=== PATIENT | male | born 1950 | race Caucasian/White ===

== ENCOUNTER → 2018-03-19 | Outpatient (CLI) | payer MEDICARE | LOC: COL.VAS 09:45 | DX: N18.4 Chronic kidney disease, stage 4 (severe) (principal) | CPT/HCPCS: G0365 ==

== ENCOUNTER 2018-07-23 13:54 | Inpatient (IN) | payer MEDICARE ==
[~2018-07-23] VITALS: Ht 182.9 cm; Wt 123.2 kg
[2018-07-23 14:18] VITALS: BP 149/69; PULSE 86; TEMP 97.6
--- NOTE | 2018-07-23 15:00 | NUR ---
Patient assessed at this time. Brother is at bedside. IV started, lab requesting assistance drawing blood. Radiology here to do renal ultrasound.
[2018-07-23 15:23] LABS: BASO % 0.6 % (0.0-2.0); EOS # 0.3 (0.0-0.7); EOS % 3.9 % (0-4.0); GRAN # 5.2 (1.4-6.5); GRAN % 78.6 % (42.2-75.2); LYMPH # 0.6 (1.2-3.4); LYMPH % 8.6 % (20.0-51.0); MEAN CELL VOLUME 88 fl (80.0-100.0); MEAN CORPUSCULAR HEMOGLOBIN 29 pg (27.0-31.0); MEAN CORPUSCULAR HGB CONC 33 g/dl (33.0-37.0); MEAN PLATELET VOLUME 11.3 fl (7.4-10.4); MONO # 0.5 (0.1-0.6); PLATELET COUNT 216 K/mm3 (130-400); RED BLOOD COUNT 4.16 M/mm3 (4.20-5.60); REDCELL DISTRIBUTION WIDTH-CV 13.2 % (11.5-14.5)
[2018-07-23 15:24] LABS: HEMATOCRIT 36.7 % (42.0-52.0)
[2018-07-23 15:29] LABS: PROTHROMBIN TIME 11.2 SECONDS (9.7-12.8)
[2018-07-23 15:31] LABS: ALANINE AMINOTRANSFERASE 26 U/L (21-72); ALBUMIN 4.3 gm/dL (3.5-5.0); ALKALINE PHOSPHATASE 80 U/L (50-136); ANION GAP 20 mmol/L (7-16); AST,SGOT 16 U/L (15-37); BILIRUBIN,TOTAL 0.4 mg/dL (0.0-1.0); CALCIUM 9.5 mg/dL (8.4-10.2); CARBON DIOXIDE 16 mmol/L (22-30); CHLORIDE 101 mmol/L (98-107); GLUCOSE 103 mg/dL (74-106); SODIUM 136 mmol/L (137-145); TOTAL PROTEIN 7.6 gm/dL (6.4-8.2)
[2018-07-23 15:32] LABS: BLOOD UREA NITROGEN > 120 mg/dL (9-20)
[2018-07-23 15:34] LABS: POTASSIUM 6.8 mmol/L (3.4-5.0)
[2018-07-23 15:46] LABS: CREATININE, serum 17.97 mg/dL (0.66-1.25)
[2018-07-23 15:47] LABS: IRON,SERUM 111 ug/dL (35-150); TOTAL IRON BINDING CAPACITY 253 ug/dL (261-462)
[2018-07-23 16:33] VITALS: BP 157/63; PULSE 82; TEMP 97.7
[2018-07-23] MEDS ORDERED: NORVASC2.5 MG PO (17:54)
[2018-07-23] MEDS ORDERED: HYTRIN 2MG CAPSU2 MG PO (17:54)
[2018-07-23] MEDS ORDERED: ASPIRIN 81M81 MG/TA2 PO (17:55)
--- NOTE | 2018-07-23 18:33 | NUR ---
Patient is resting in bed on right side. Finished evening meal. Consent signed for procedure in the morning. Has not had a bowel movement yet. Denies pain. Understands he is to have nothing to eat after midnight and was made aware of medication changes by Dr. Smith. Call light is within reach.
[2018-07-23 19:03] VITALS: BP 150/75; PULSE 88; TEMP 97.7
--- NOTE | 2018-07-23 20:30 | NUR ---
Initial shift assessment done- denies pain, states feels fine tonight-- understands will be NPO after MN tonight for Dialysis cath placement in AM- given a sandwich box tonight for a snack- no requests
[2018-07-24 00:09] VITALS: BP 145/53; PULSE 78; TEMP 97.8
[2018-07-24 00:11] LABS: HEPATITIS B CORE AB,TOTAL Negative (()); HEPATITIS B SURFACE ANTIGEN Negative (Negative)
[2018-07-24 00:12] LABS: HEPATITIS B SURFACE ANTIBODY <2.0 (())
[2018-07-24 00:13] LABS: HEPATITIS C VIRUS ANTIBODY Negative (Negative)
[2018-07-24 04:32] VITALS: BP 134/64; PULSE 80
[2018-07-24 05:58] LABS: BASO % 0.5 % (0.0-2.0); EOS # 0.4 (0.0-0.7); EOS % 5.8 % (0-4.0); GRAN # 4.9 (1.4-6.5); GRAN % 74.5 % (42.2-75.2); HEMOGLOBIN 11.5 g/dl (13.5-18.0); LYMPH # 0.6 (1.2-3.4); LYMPH % 8.9 % (20.0-51.0); MEAN CELL VOLUME 88 fl (80.0-100.0); MEAN CORPUSCULAR HEMOGLOBIN 29 pg (27.0-31.0); MEAN CORPUSCULAR HGB CONC 33 g/dl (33.0-37.0); MEAN PLATELET VOLUME 10.8 fl (7.4-10.4); MONO # 0.6 (0.1-0.6); MONO % 9.8 % (1.7-9.3); PLATELET COUNT 196 K/mm3 (130-400); RED BLOOD COUNT 3.95 M/mm3 (4.20-5.60); REDCELL DISTRIBUTION WIDTH-CV 13.2 % (11.5-14.5)
--- NOTE | 2018-07-24 06:00 | NUR ---
quiet night-- has been NPO since MN ,, states did not sleep much-states a little nervous about the procedure this morning- VSS
[2018-07-24 06:04] LABS: HEMATOCRIT 34.6 % (42.0-52.0)
[2018-07-24 06:13] LABS: ALBUMIN 3.9 gm/dL (3.5-5.0); CALCIUM 8.7 mg/dL (8.4-10.2); POTASSIUM 5.1 mmol/L (3.4-5.0)
[2018-07-24 06:35] LABS: CREATININE, serum 18.22 mg/dL (0.66-1.25); PHOSPHOROUS 12.9 mg/dL (2.5-4.5)
--- NOTE | 2018-07-24 07:10 | NUR ---
Received report, went to visit with patient. Patient is resting with eyes closed on left side. Call light is within reach.
--- NOTE | 2018-07-24 08:08 | NUR ---
Sleeping soundly at this time. No sign of pain. The call light is in place and the patient is currently NPO for dialysis cath placement today.
[2018-07-24 08:16] VITALS: BP 136/59; PULSE 80; TEMP 97.7
--- NOTE | 2018-07-24 09:10 | NUR ---
Patient noted to have half glass of ice water at bedside. Patient stated Dr. Smith is allowing a small amount of water prior to procedure.
--- NOTE | 2018-07-24 10:03 | NUR ---
Initial visit; Patient thanked Operating Room Surgical Technologist for looking in on him and offering God 's blessings.
--- NOTE | 2018-07-24 12:27 | NUR ---
Phoslo not administered, patient is at dialysis at this time. Went for cath placement at 1130. Received report from anesthesia.
--- NOTE | 2018-07-24 16:02 | NUR ---
Patient returned from dialysis at 1530. Denies pain, call light is within reach.
[2018-07-24 16:16] VITALS: BP 129/76; PULSE 83; TEMP 97.8
--- NOTE | 2018-07-24 16:25 | NUR ---
JOSEP and SW student met with the patient and patient's brother, Andrew, to discuss discharge plan. The patient lives alone in [place]. He reports independence with ADLs and has a cane. The patient's PCP is Dr. Nette Martinez and he receives his medications at the [facility] in [place]. He reports no difficulties obtaining his meds. The patient does not have advanced directives, but he was interested in obtaining the form for DPOA-HC. JOSEP provided. The patient plans to return home upon discharge. No additional needs at this time.
--- NOTE | 2018-07-24 18:05 | NUR ---
Patient is up to recliner visiting with family. Did order evening meal. Nursing staff educated patient on dietary information and informed patient that dietitian would be in to see him tomorrow. Denies pain. Call light is within reach.
[2018-07-24 19:02] VITALS: BP 158/78; PULSE 91; TEMP 97.9
--- NOTE | 2018-07-24 22:20 | NUR ---
Completed assessment; tolerated all well. PT reported he was unable to rest well last evening and was ready to to attempt to rest tonight; PT denied pain or discomfort at time of assessment; A&Ox3, BS active x4, urinary output reported althoughout not visualized; PT pending dialysis tomorrow AM per schedule; PT denied further needs or concerns at time of exit; Call light placed within reach; Will continue to monitor. CDA
[2018-07-25 00:52] VITALS: BP 150/70; PULSE 74; TEMP 99
--- NOTE | 2018-07-25 01:52 | NUR ---
PT offered midnight snack; PT denied pain, discomfort, or further needs at time of exit; PT resting well at check; call light well placed within reach; Will continue to monitor; no further medications or treatments at this time. CDA
[2018-07-25 05:30] VITALS: BP 148/56; PULSE 77; TEMP 97.9
--- NOTE | 2018-07-25 06:57 | NUR ---
Report given to PEÑA Strickland. No further changes. CDA
[2018-07-25 08:04] VITALS: BP 146/51; PULSE 85; TEMP 98
[2018-07-25 08:09] LABS: ALBUMIN 4.1 gm/dL (3.5-5.0); CALCIUM 10.3 mg/dL (8.4-10.2); POTASSIUM 5.4 mmol/L (3.4-5.0)
[2018-07-25 08:19] LABS: PHOSPHOROUS 11.2 mg/dL (2.5-4.5)
[2018-07-25 08:20] LABS: CREATININE, serum 14.52 mg/dL (0.66-1.25)
--- NOTE | 2018-07-25 08:35 | NUR ---
PATIENT ASSESSMENT COMPLETED. HE DENIES PAIN DOES HAVE A LITTLE DISCOMFORT AT DIALYSIS CATH SITE WHEN LAYING DOWN. HE HAS EATTEN BREAKFAST AND HOPES TO GO HOME AFTER DIALYSIS TODAY.
[2018-07-25 11:11] VITALS: BP 168/76; PULSE 77; TEMP 98.2
[2018-07-25 11:33] LABS: BASO # 0.1 (0.0-0.2); BASO % 0.8 % (0.0-2.0); EOS # 0.4 (0.0-0.7); EOS % 5.7 % (0-4.0); GRAN # 4.3 (1.4-6.5); GRAN % 66.9 % (42.2-75.2); HEMOGLOBIN 11.8 g/dl (13.5-18.0); LYMPH # 0.8 (1.2-3.4); LYMPH % 13.2 % (20.0-51.0); MEAN CELL VOLUME 88 fl (80.0-100.0); MEAN CORPUSCULAR HEMOGLOBIN 29 pg (27.0-31.0); MEAN CORPUSCULAR HGB CONC 33 g/dl (33.0-37.0); MONO # 0.8 (0.1-0.6); MONO % 13.2 % (1.7-9.3); PLATELET COUNT 219 K/mm3 (130-400); RED BLOOD COUNT 4.07 M/mm3 (4.20-5.60); REDCELL DISTRIBUTION WIDTH-CV 13.1 % (11.5-14.5)
[2018-07-25 11:40] LABS: HEMATOCRIT 35.7 % (42.0-52.0)
[2018-07-25] MEDS ORDERED: RENVELA800 MG PO (12:38)
[2018-07-25] MEDS ORDERED: NEPHROCAP PO (12:38)
--- NOTE | 2018-07-25 14:15 | NUR ---
PATIENT DISCHARGE INSTRUCTIONS REVIEWED, HE DENIES FURTHER QUESTIONS AND WILL GET NEW MEDICATIONS FROM [facility] IN [place]. INT TO LEFT WRIST REMOVED WITH CATH INTACT. DIALYSIS CATH TO RIGHT UPPER CHEST IS COVERED AND INTACT. HE IS AWARE OF KEEPING THIS COVERED AT ALL TIMES AND DO NOT SHOWER AND GET WET.
--- NOTE | 2018-07-25 15:15 | NUR ---
PATIENT DISCHARGED TO HOME WITH BELONGINGS. HIS BROTHER CAME TO PICK HIM UP. HE DENIES ANY FURTHER QUESTIONS.
== END 2018-07-25 15:20 | disposition home or self-care (01) | DRG 674 ==
LOC: MEDICAL 13:54
PROVIDERS: ADMIT Internal Medicine Nephrology
PROC: 0JH60XZ Insertion of Tunneled Vascular Access Device into Chest Subcutaneous Tissue and Fascia, Open Approach (ICD-10-PCS; principal; 2018-07-24)
PROC: 02HV33Z Insertion of Infusion Device into Superior Vena Cava, Percutaneous Approach (ICD-10-PCS; 2018-07-24)
PROC: 5A1D70Z Performance of Urinary Filtration, Intermittent, Less than 6 Hours Per Day (ICD-10-PCS; 2018-07-24)
PROC: 5A1D70Z Performance of Urinary Filtration, Intermittent, Less than 6 Hours Per Day (ICD-10-PCS; 2018-07-25)
DX: N17.9 Acute kidney failure, unspecified (principal); I12.0 Hypertensive chronic kidney disease with stage 5 chronic kidney disease or end stage renal disease; N18.9 Chronic kidney disease, unspecified; N18.6 End stage renal disease; Z86.718 Personal history of other venous thrombosis and embolism; E87.5 Hyperkalemia; E83.52 Hypercalcemia; T50.3X5A Adverse effect of electrolytic, caloric and water-balance agents, initial encounter
CPT/HCPCS: C1769; J0690; J1644; J2250; J3010

== ENCOUNTER 2018-11-20 08:31 | Outpatient (CLI) | payer MEDICARE ==
[~2018-11-20] VITALS: Ht 182.9 cm; Wt 123.1 kg
[2018-11-20] VITALS (9 sets, daily range): BP systolic 124–154; BP diastolic 77–93; PULSE 70–77; TEMP 97.7
[~2018-11-20 08:31] MED LIST: ASPIRIN 81M81 MG/TA2 PO; HYTRIN 2MG CAPSU2 MG PO; NEPHROCAP PO; NORVASC2.5 MG PO; RENVELA800 MG PO
[2018-11-20] MEDS ORDERED: VELPHORO PO (08:47)
[2018-11-20] MEDS ORDERED: NEURONTIN100 MG/CAP PO (08:48)
--- NOTE | 2018-11-20 10:33 | NUR ---
PLEASE SEE MERGE FOR ALL MEDICATION ADMINISTRATION TIMES, SEDATION ASSESSMENT DATA.
== END 2018-11-20 14:00 | disposition home or self-care (01) ==
LOC: COL.RAD 08:31
DX: N18.6 End stage renal disease (principal); I87.8 Other specified disorders of veins; Z99.2 Dependence on renal dialysis
CPT/HCPCS: J1644; J2250; J3010; Q9967

== ENCOUNTER → 2018-12-09 | Outpatient (CLI) | payer MEDICARE ==
[~2018-12-09] VITALS: Ht 182.9 cm; Wt 122.0 kg
[~2018-12-09] MED LIST changes: +NEURONTIN100 MG/CAP PO; +VELPHORO PO
[2018-12-09 13:41] VITALS: BP 120/77; PULSE 88
[2018-12-09 14:10] VITALS: BP 126/74; PULSE 81
== END ==
LOC: COL.RAD 13:19
DX: Z49.01 Encounter for fitting and adjustment of extracorporeal dialysis catheter (principal); N18.6 End stage renal disease

== ENCOUNTER 2019-01-25 11:31 | Outpatient (CLI) | payer MEDICARE ==
--- NOTE | 2019-01-24 09:34 | NUR ---
CALLED PT TO REVIEW MEDICAL HISTORY AND PROCEDURE INSTRUCTIONS. NO ANSWER AND PT DOES NOT HAVE A VOICE MAILBOX SET UP YET.
[~2019-01-25] VITALS: Ht 182.9 cm; Wt 125.0 kg
[2019-01-25] VITALS (9 sets, daily range): BP systolic 121–149; BP diastolic 54–81; PULSE 71–82; TEMP 97.1–97.6
--- NOTE | 2019-01-25 13:52 | NUR ---
ALL MEDICATIONS GIVEN VORB FROM MD. SEE MERGE FOR ALL MEDICATION ADMIN TIMES. SEE MERGE FOR ALL RASS ASSESSMENTS DURING AND POST PROCEDURE.
--- NOTE | 2019-01-25 14:50 | NUR ---
Pt returned to EU 11 per bed s/p fistulogram. Pt resting well, brother at bedside.
--- NOTE | 2019-01-25 16:20 | NUR ---
Pt has ambulated, voided and sathish PO intake s n/v.
--- NOTE | 2019-01-25 16:40 | NUR ---
PIV removed with catheter intact.
--- NOTE | 2019-01-25 16:55 | NUR ---
Pt discharged per w/c by nurse with brother.
== END 2019-01-25 17:01 | disposition home or self-care (01) ==
LOC: COL.CAR 11:31
DX: T82.858A Stenosis of other vascular prosthetic devices, implants and grafts, initial encounter (principal); I12.0 Hypertensive chronic kidney disease with stage 5 chronic kidney disease or end stage renal disease; N18.6 End stage renal disease; F17.220 Nicotine dependence, chewing tobacco, uncomplicated; Z79.82 Long term (current) use of aspirin
CPT/HCPCS: J1644; J2250; J3010; Q9967

== ENCOUNTER → 2020-12-26 | Outpatient (CLI) | payer MEDICARE ==
[~2020-12-26] MED LIST changes: +TOPROL XL 25MG25 MG PO
== END ==
LOC: COL.RAD 08:59
DX: C61 Malignant neoplasm of prostate (principal)
CPT/HCPCS: A9503

== ENCOUNTER → 2020-12-29 | Outpatient (CLI) | payer MEDICARE, MEDICAID | LOC: COL.RAD 08:06 | DX: N26.1 Atrophy of kidney (terminal) (principal); I77.1 Stricture of artery; C61 Malignant neoplasm of prostate | CPT/HCPCS: Q9967 ==

== ENCOUNTER → 2021-01-12 | Outpatient (CLI) | payer MEDICARE, MEDICAID | LOC: COL.RAD 01-11 08:30 | DX: C61 Malignant neoplasm of prostate (principal) | CPT/HCPCS: Q9967 ==

== ENCOUNTER 2021-05-22 10:53 | Outpatient (CLI) | payer MEDICARE, MEDICAID ==
[~2021-05-22] VITALS: Ht 183 cm; Wt 120.6 kg
[2021-05-22] VITALS (8 sets, daily range): BP systolic 162–187; BP diastolic 85–97; PULSE 70–76; TEMP 98.1
[~2021-05-22 10:53] MED LIST changes: -TOPROL XL 25MG25 MG PO
[2021-05-22] MEDS ORDERED: TOPROL XL 25MG25 MG PO (11:10)
--- NOTE | 2021-05-22 13:38 | NUR ---
SEE MERGE FOR ALL MEDICATION ADMINISTRATION TIMES INTRA AND POST SEDATION ASSESSMENTS
--- NOTE | 2021-05-22 14:15 | NUR ---
Report from Grace POMPA. Transferred from [facility] by bed. Alert and oriented. Right forearm fistula with bandaid CD&, thrill and bruit noted with strong pulses. VSS
--- NOTE | 2021-05-22 15:30 | NUR ---
INT discontinued intact. VSS. Discharge instructions given. Transferred to private car by javy
== END 2021-05-22 15:50 | disposition home or self-care (01) ==
LOC: COL.CAR 10:53
DX: T82.858A Stenosis of other vascular prosthetic devices, implants and grafts, initial encounter (principal); I12.0 Hypertensive chronic kidney disease with stage 5 chronic kidney disease or end stage renal disease; N18.6 End stage renal disease; Z99.2 Dependence on renal dialysis; Z79.82 Long term (current) use of aspirin; Z79.899 Other long term (current) drug therapy
CPT/HCPCS: C1725; C1769; C1894; J1644; J2250; J3010